=== PATIENT | female | born 1960 | race Hispanic/Latino ===

== ENCOUNTER 2017-08-24 01:59 | Emergency (ER) | payer MEDICAID, OTHER ==
[2017-08-24 06:04] LABS: BUN/Creatinine Ratio 22; Blood Urea Nitrogen 11 mg/dL (7-17); Calcium 10.1 mg/dL (8.4-10.2); Hemolysis Index 3
[2017-08-24 06:19] VITALS: BP 130/66
--- NOTE | 2017-08-24 06:55 | Emergency Department Report ---
ED General Adult HPI - General Chief complaint: Hypoglycemia Stated complaint: SUGAR LOW Time Seen by Provider: 08/24/17 06:19 Source: patient Mode of arrival: Ambulatory Limitations: No Limitations - History of Present Illness Initial comments: 57 year old female history of [id number] diabetes, asthma, COPD, hypertension, peripheral neuropathy, CAD with stent placement and cardiac bypass presents to the hospital complains of tremulous feeling and lightheadedness. Symptoms occurred acutely at 1:30 AM. Patient was then brought to the ER by her son. Upon arrival patient was tremulous with a Accu- Chek of 78. After getting a snack lunch in juice she felt "a whole lot better. " Despite being a diabetic for many years patient has never had an episode of hypoglycemia. In the past she has been on metformin, glipizide, and insulin. She is not currently on insulin. Patient has only been on metformin (unknown dose) twice a day for the past one week because she ran out of her glipizide. She restarted her glipizide 5 mg last night (scheduled for bid). She also thinks she did not have enough to eat during the day. While only on her metformin her sugars have been running 160-250. She denies fever, cough or infectious symptoms, dysuria, nausea, vomiting, or pain. Patient does have a new PMD but she cannot recall the name Severity scale (0 -10): 0 - Related Data Home Medications Medication Instructions Recorded Confirmed Last Taken Levalbuterol Hfa 45 Mcg/Puff 2 mcg INHALATION Q6H PRN 05/11/15 08/22/16 05/10/15 [Xopenex Hfa (Nf)] Pantoprazole [Protonix TAB] 40 mg PO QDAY 05/11/15 08/22/16 05/10/15 Tiotropium [place] [Spiriva 2 gm IH QAM 05/11/15 08/22/16 05/09/15 Respimat] Vit D3/Folic Acid/B2/B6/B12 1 tab PO QWEEK 05/11/15 08/22/16 05/06/15 [Folgard Tablet] Albuterol Sulfate [Ventolin HFA] 2 puff IH Q4H PRN 08/22/16 08/22/16 Unknown Desvenlafaxine Succinate [Pristiq] 50 mg PO DAILY 08/22/16 08/22/16 Unknown Diazepam 10 mg PO BID 08/22/16 08/22/16 Unknown busPIRone [Buspar] 10 mg PO BID 08/22/16 08/22/16 Unknown glipiZIDE [Glucotrol] 5 mg PO BID 08/22/16 08/22/16 Unknown traZODone [Desyrel] 50 mg PO QHS 08/22/16 08/22/16 Unknown Previous Rx's Medication Instructions Recorded Last Taken Type Simvastatin [Zocor TAB] 10 mg PO QHS #30 tablet 11/05/14 05/09/15 Rx Famotidine [Pepcid] 20 mg PO BID #60 tablet 08/23/16 Unknown Rx Gabapentin [Neurontin] 300 mg PO QHS #30 capsule 08/23/16 Unknown Rx diphenhydrAMINE [Benadryl CAP] 25 mg PO Q6HR PRN #20 capsule 08/23/16 Unknown Rx Aspirin EC [Aspirin Enteric Coated 325 mg PO QDAY #30 tablet. 08/28/16 Unknown Rx TAB] Allergies Allergy/AdvReac Type Severity Reaction Status Date / Time No Known Allergies Allergy Unverified 11/02/14 18:01 ED Review of Systems ROS: Stated complaint: SUGAR LOW Other details as noted in HPI Comment: All other systems reviewed and negative ED Past Medical Hx - Past Medical History Previous Medical History?: Yes Hx Hypertension: Yes Hx Congestive Heart Failure: No Hx Diabetes: Yes Hx Asthma: Yes Hx COPD: Yes Hx HIV: No Additional medical history: peripheral neuropathy - Surgical History Past Surgical History?: Yes Hx Coronary Stent: Yes (x1, 2009) Hx Open Heart Surgery: Yes Hx Cholecystectomy: Yes Additional Surgical History: hysterectomy, 2010. 2 vessel bypass, 2009 - Social History Smoking Status: Former Smoker - Medications Home Medications: Home Medications Medication Instructions Recorded Confirmed Last Taken Type Simvastatin [Zocor TAB] 10 mg PO QHS #30 tablet 11/05/14 08/22/16 05/09/15 Rx Levalbuterol Hfa 45 Mcg/Puff 2 mcg INHALATION Q6H PRN 05/11/15 08/22/16 History [Xopenex Hfa (Nf)] Pantoprazole [Protonix TAB] 40 mg PO QDAY 05/11/15 08/22/16 05/10/15 History Tiotropium [place] [Spiriva 2 gm IH QAM 05/11/15 08/22/16 05/09/15 History Respimat] Vit D3/Folic Acid/B2/B6/B12 1 tab PO QWEEK 05/11/15 08/22/16 05/06/15 History [Folgard Tablet] Albuterol Sulfate [Ventolin HFA] 2 puff IH Q4H PRN 08/22/16 08/22/16 Unknown History Desvenlafaxine Succinate [Pristiq] 50 mg PO DAILY 08/22/16 08/22/16 Unknown History Diazepam 10 mg PO BID 08/22/16 08/22/16 Unknown History busPIRone [Buspar] 10 mg PO BID 08/22/16 08/22/16 Unknown History glipiZIDE [Glucotrol] 5 mg PO BID 08/22/16 08/22/16 Unknown History traZODone [Desyrel] 50 mg PO QHS 08/22/16 08/22/16 Unknown History Famotidine [Pepcid] 20 mg PO BID #60 tablet 08/23/16 Unknown Rx Gabapentin [Neurontin] 300 mg PO QHS #30 capsule 08/23/16 Unknown Rx diphenhydrAMINE [Benadryl CAP] 25 mg PO Q6HR PRN #20 capsule 08/23/16 Unknown Rx Aspirin EC [Aspirin Enteric Coated 325 mg PO QDAY #30 tablet. 08/28/16 Unknown Rx TAB] ED Physical Exam - General Limitations: No Limitations - Other Other exam information: General: No limitations, patient is alert in no acute distress Head exam: Atraumatic, normocephalic Eyes exam: Normal appearance ENT: Moist mucous membrane, normal oropharynx Neck exam: Normal inspection, full range of motion, no meningismus nontender Respiratory exam: Clear to auscultation bilateral, no wheezes, rales, crackles Cardiovascular: Normal rate and rhythm, sternotomy scar Abdomen: Soft, nondistended, and nontender, with normal bowel sounds, no rebound, or guarding Extremity: Full range of motion normal inspection no deformity Back: Normal Inspection, full range of motion, no tenderness Neurologic: Alert, oriented x3, cranial nerves intact, no motor or sensory deficit Psychiatric: normal affect, normal mood Skin: Warm, dry, intact ED Course Vital Signs 08/24/17 08/24/17 02:41 06:17 Temperature 97.3 F L 98 F Pulse Rate 90 86 Respiratory 18 16 Rate Blood Pressure 108/60 Blood Pressure 130/66 [Left] O2 Sat by Pulse 95 100 Oximetry ED Medical Decision Making - Lab Data Result diagrams: 08/24/17 05:35 Lab Results 08/24/17 Range/Units 05:35 Sodium 143 (137-145) mmol/L Potassium 4.5 (3.6-5.0) mmol/L Chloride 101.2 (98-107) mmol/L Carbon Dioxide 31 H (22-30) mmol/L Anion Gap 15 mmol/L BUN 11 (7-17) mg/dL Creatinine 0.5 L (0.7-1.2) mg/dL Estimated GFR > 60 ml/min BUN/Creatinine Ratio 22 % Glucose 150 H (65-100) mg/dL Calcium 10.1 (8.4-10.2) mg/dL - Medical Decision Making Patient had hypoglycemia likely secondary to decreased fluid intake. Patient states she has been trying to drink more water and eat appropriately. Her sugar was in the 160-250 range just on her metformin twice a day and she had a hypoglycemic episode after reinitiating glipizide. Patient's glucose remained stable in the ED. She was advised to take the glipizide 5 mg once a day in the morning only in addition to her metformin. She was monitored her glucose and follow-up with PMD for further diabetes management. Glucose is only 134, so pt will be advised to restart glipizide tomorrow. - Differential Diagnosis diabetic medication reaction, infection, poor by mouth intake Critical Care Time: No Critical care attestation.: If time is entered above; I have spent that time in minutes in the direct care of this critically ill patient, excluding procedure time. ED Disposition Clinical Impression: Hypoglycemia associated with diabetes Disposition: DC-01 TO HOME OR SELFCARE Is pt being admited?: No Condition: Stable Instructions: Diabetic Hypoglycemia (ED) Additional Instructions: Continue your metformin as prescribed. Take glipizide 5 mg only once a day in the morning and continue to monitor glucose and eat appropriately throughout the day. Restart the glipizide tomorrow morning. If your sugars are running low then stop the glipizide altogether. Follow-up with your doctor for further diabetes management and return if symptoms worsen as indicated by your discharge instructions. Referrals: PRIMARY CARE, [Primary Care Provider] - 3-5 Days Time of Disposition: 07:04
== END 2017-08-24 06:45 | disposition home or self-care (01) ==
LOC: ED 01:59
DX: E11.649 Type 2 diabetes mellitus with hypoglycemia without coma (principal); I10 Essential (primary) hypertension; E11.42 Type 2 diabetes mellitus with diabetic polyneuropathy; J44.9 Chronic obstructive pulmonary disease, unspecified; Z95.1 Presence of aortocoronary bypass graft; Z87.891 Personal history of nicotine dependence; Z90.710 Acquired absence of both cervix and uterus
CPT/HCPCS: 36415; 80048; 82962; 99283

== ENCOUNTER 2017-10-14 10:56 | Emergency (ER) | payer MEDICAID ==
--- NOTE | 2017-10-14 11:49 | Emergency Department Report ---
ED General Adult HPI - General Chief complaint: Hyperglycemia Stated complaint: HIGH SUGAR/SHAKY Time Seen by Provider: 10/14/17 11:49 Source: patient Mode of arrival: Ambulatory Limitations: No Limitations - History of Present Illness Initial comments: Patient is a 57-year-old female past medical history of type 2 diabetes who presents with elevated blood sugar. Patient states that she was previously on glipizide however her doctor took her off of it because her blood sugars was in the 100s. Patient states that she took her blood sugar today and it was in the 500s. She denies any nausea or vomiting. She denies having any abdominal pain. Any coughing or any febrile symptoms. Patient states that she does not take any insulin and that she has been working out to lose weight. Patient does not smoke and only drinks socially. Patient currently is not employed. - Related Data Home Medications Medication Instructions Recorded Confirmed Last Taken Levalbuterol Hfa 45 Mcg/Puff 2 mcg INHALATION Q6H PRN 05/11/15 08/22/16 05/10/15 [Xopenex Hfa (Nf)] Pantoprazole [Protonix TAB] 40 mg PO QDAY 05/11/15 08/22/16 05/10/15 Tiotropium [place] [Spiriva 2 gm IH QAM 05/11/15 08/22/16 05/09/15 Respimat] Vit D3/Folic Acid/B2/B6/B12 1 tab PO QWEEK 05/11/15 08/22/16 05/06/15 [Folgard Tablet] Albuterol Sulfate [Ventolin HFA] 2 puff IH Q4H PRN 08/22/16 08/22/16 Unknown Desvenlafaxine Succinate [Pristiq] 50 mg PO DAILY 08/22/16 08/22/16 Unknown busPIRone [Buspar] 10 mg PO BID 08/22/16 08/22/16 Unknown diazePAM [Diazepam] 10 mg PO BID 08/22/16 08/22/16 Unknown glipiZIDE [Glucotrol] 5 mg PO BID 08/22/16 08/22/16 Unknown traZODone [Desyrel] 50 mg PO QHS 08/22/16 08/22/16 Unknown Previous Rx's Medication Instructions Recorded Last Taken Type Simvastatin [Zocor TAB] 10 mg PO QHS #30 tablet 11/05/14 05/09/15 Rx Famotidine [Pepcid] 20 mg PO BID #60 tablet 08/23/16 Unknown Rx Gabapentin [Neurontin] 300 mg PO QHS #30 capsule 08/23/16 Unknown Rx diphenhydrAMINE [Benadryl CAP] 25 mg PO Q6HR PRN #20 capsule 08/23/16 Unknown Rx Aspirin EC [Aspirin Enteric Coated 325 mg PO QDAY #30 tablet. 08/28/16 Unknown Rx TAB] Sulfamethoxazole/Trimethoprim 1 each PO BID #14 tablet 10/14/17 Unknown Rx [Bactrim DS TAB] Allergies Allergy/AdvReac Type Severity Reaction Status Date / Time No Known Allergies Allergy Unverified 11/02/14 18:01 ED Review of Systems ROS: Stated complaint: HIGH SUGAR/SHAKY Other details as noted in HPI Constitutional: denies: chills, fever Eyes: denies: eye pain, eye discharge, vision change ENT: denies: ear pain, throat pain Respiratory: denies: cough, shortness of breath, wheezing Cardiovascular: denies: chest pain, palpitations Endocrine: no symptoms reported Gastrointestinal: denies: abdominal pain, nausea, diarrhea Genitourinary: denies: urgency, dysuria, discharge Musculoskeletal: denies: back pain, joint swelling, arthralgia Skin: denies: rash, lesions Neurological: denies: headache, weakness, paresthesias Psychiatric: denies: anxiety, depression Hematological/Lymphatic: denies: easy bleeding, easy bruising ED Past Medical Hx - Past Medical History Hx Hypertension: Yes Hx Congestive Heart Failure: No Hx Diabetes: Yes Hx Asthma: Yes Hx COPD: Yes Hx HIV: No Additional medical history: peripheral neuropathy - Surgical History Hx Coronary Stent: Yes (x1, 2010) Hx Open Heart Surgery: Yes Hx Cholecystectomy: Yes Additional Surgical History: hysterectomy, 2011. 2 vessel bypass, 2009 - Social History Smoking Status: Never Smoker Substance Use Type: None - Medications Home Medications: Home Medications Medication Instructions Recorded Confirmed Last Taken Type Simvastatin [Zocor TAB] 10 mg PO QHS #30 tablet 11/05/14 08/22/16 05/09/15 Rx Levalbuterol Hfa 45 Mcg/Puff 2 mcg INHALATION Q6H PRN 05/11/15 08/22/16 History [Xopenex Hfa (Nf)] Pantoprazole [Protonix TAB] 40 mg PO QDAY 05/11/15 08/22/16 05/10/15 History Tiotropium [place] [Spiriva 2 gm IH QAM 05/11/15 08/22/16 05/09/15 History Respimat] Vit D3/Folic Acid/B2/B6/B12 1 tab PO QWEEK 05/11/15 08/22/16 05/06/15 History [Folgard Tablet] Albuterol Sulfate [Ventolin HFA] 2 puff IH Q4H PRN 08/22/16 08/22/16 Unknown History Desvenlafaxine Succinate [Pristiq] 50 mg PO DAILY 08/22/16 08/22/16 Unknown History busPIRone [Buspar] 10 mg PO BID 08/22/16 08/22/16 Unknown History diazePAM [Diazepam] 10 mg PO BID 08/22/16 08/22/16 Unknown History glipiZIDE [Glucotrol] 5 mg PO BID 08/22/16 08/22/16 Unknown History traZODone [Desyrel] 50 mg PO QHS 08/22/16 08/22/16 Unknown History Famotidine [Pepcid] 20 mg PO BID #60 tablet 08/23/16 Unknown Rx Gabapentin [Neurontin] 300 mg PO QHS #30 capsule 08/23/16 Unknown Rx diphenhydrAMINE [Benadryl CAP] 25 mg PO Q6HR PRN #20 capsule 08/23/16 Unknown Rx Aspirin EC [Aspirin Enteric Coated 325 mg PO QDAY #30 tablet. 08/28/16 Unknown Rx TAB] Sulfamethoxazole/Trimethoprim 1 each PO BID #14 tablet 10/14/17 Unknown Rx [Bactrim DS TAB] ED Physical Exam - General Limitations: No Limitations General appearance: alert, in no apparent distress - Head Head exam: Present: atraumatic, normocephalic - Eye Eye exam: Present: normal appearance - ENT ENT exam: Present: mucous membranes moist - Neck Neck exam: Present: normal inspection - Respiratory Respiratory exam: Present: normal lung sounds bilaterally. Absent: respiratory distress - Cardiovascular Cardiovascular Exam: Present: regular rate, normal rhythm. Absent: systolic murmur, diastolic murmur, rubs, gallop - GI/Abdominal GI/Abdominal exam: Present: soft, normal bowel sounds - Extremities Exam Extremities exam: Present: normal inspection - Back Exam Back exam: Present: normal inspection - Neurological Exam Neurological exam: Present: alert, oriented X3 - Psychiatric Psychiatric exam: Present: normal affect, normal mood - Skin Skin exam: Present: warm, dry, intact, normal color. Absent: rash ED Course Vital Signs 10/14/17 10/14/17 10/14/17 11:20 11:44 12:22 Temperature 98.7 F Pulse Rate 100 H 108 H 97 H Respiratory 16 16 18 Rate Blood Pressure 130/60 134/45 O2 Sat by Pulse 95 Oximetry 10/14/17 12:30 Temperature Pulse Rate 89 Respiratory 18 Rate Blood Pressure 134/45 O2 Sat by Pulse 97 Oximetry - Reevaluation(s) Reevaluation #1: 10/14/17 14:48 Agents blood glucoses in the 100s I will send patient home with oral antibiotics for her urinary tract infection. Reevaluation #2: 10/14/17 14:55 Patient's repeat blood sugar is 142. ED Medical Decision Making - Lab Data Result diagrams: 10/14/17 11:26 10/14/17 11:26 Lab Results 10/14/17 10/14/17 10/14/17 Range/Units 11:12 11:26 11:26 WBC 10.2 (4.5-11.0) K/mm3 RBC 5.90 H (3.65-5.03) M/mm3 Hgb 17.2 H (10.1-14.3) gm/dl Hct 51.2 H (30.3-42.9) % MCV 87 (79-97) fl MCH 29 (28-32) pg MCHC 34 (30-34) % RDW 13.1 L (13.2-15.2) % Plt Count 283 (140-440) K/mm3 Lymph % (Auto) 18.5 (13.4-35.0) % [place] % (Auto) 4.9 (0.0-7.3) % Eos % (Auto) 0.9 (0.0-4.3) % Baso % (Auto) 0.7 (0.0-1.8) % Lymph # 1.9 (1.2-5.4) K/mm3 [place] # 0.5 (0.0-0.8) K/mm3 Eos # 0.1 (0.0-0.4) K/mm3 Baso # 0.1 (0.0-0.1) K/mm3 Seg Neutrophils % 75.0 H (40.0-70.0) % Seg Neutrophils # 7.7 (1.8-7.7) K/mm3 VBG pH (7.320-7.420) Sodium 134 L (137-145) mmol/L Potassium 4.3 (3.6-5.0) mmol/L Chloride 94.0 L (98-107) mmol/L Carbon Dioxide 21 L (22-30) mmol/L Anion Gap 23 mmol/L BUN 14 (7-17) mg/dL Creatinine 0.7 (0.7-1.2) mg/dL Estimated GFR > 60 ml/min BUN/Creatinine Ratio 20 % Glucose 589 H* (65-100) mg/dL POC Glucose > 500 H (70-105) Calcium 9.1 (8.4-10.2) mg/dL 10/14/17 Range/Units 11:26 WBC (4.5-11.0) K/mm3 RBC (3.65-5.03) M/mm3 Hgb (10.1-14.3) gm/dl Hct (30.3-42.9) % MCV (79-97) fl MCH (28-32) pg MCHC (30-34) % RDW (13.2-15.2) % Plt Count (140-440) K/mm3 Lymph % (Auto) (13.4-35.0) % [place] % (Auto) (0.0-7.3) % Eos % (Auto) (0.0-4.3) % Baso % (Auto) (0.0-1.8) % Lymph # (1.2-5.4) K/mm3 [place] # (0.0-0.8) K/mm3 Eos # (0.0-0.4) K/mm3 Baso # (0.0-0.1) K/mm3 Seg Neutrophils % (40.0-70.0) % Seg Neutrophils # (1.8-7.7) K/mm3 VBG pH 7.383 (7.320-7.420) Sodium (137-145) mmol/L Potassium (3.6-5.0) mmol/L Chloride (98-107) mmol/L Carbon Dioxide (22-30) mmol/L Anion Gap mmol/L BUN (7-17) mg/dL Creatinine (0.7-1.2) mg/dL Estimated GFR ml/min BUN/Creatinine Ratio % Glucose (65-100) mg/dL POC Glucose (70-105) Calcium (8.4-10.2) mg/dL - Medical Decision Making Cdx: Hyperglycemia 2/2 Type 2 Diabetes Ddx: Diabetes ketoacidosis, Hyper osmolic nonketotic state We'll give IV fluids, IV insulin, CBC, CMP, VBG Patient has a potentially life-threatening condition I will reevaluate patient after IV insulin and multiple fluid boluses to determine if patient needs to be admitted to the hospital. I will discharge patient with oral antibiotics for her UTI. Discussed plan with patient and patient agrees with plan additional verbal discharge instructions were given. Critical care attestation.: If time is entered above; I have spent that time in minutes in the direct care of this critically ill patient, excluding procedure time. ED Disposition Clinical Impression: UTI (urinary tract infection) Qualifiers: Urinary tract infection type: acute cystitis Hematuria presence: without hematuria Qualified Code(s): N30.00 - Acute cystitis without hematuria Hyperglycemia due to type 2 diabetes mellitus Qualifiers: Diabetes mellitus [place] [employer] member insulin use: without [place] tribunal member use Qualified Code(s ): E11.65 - Type 2 diabetes mellitus with hyperglycemia Disposition: DC-01 TO HOME OR SELFCARE Is pt being admited?: No Does the pt Need Aspirin: No Condition: Stable Instructions: Diabetes Mellitus Type 2 in Adults (ED) Prescriptions: Sulfamethoxazole/Trimethoprim [Bactrim DS TAB] 1 each PO BID #14 tablet Referrals: PRIMARY CARE, [Primary Care Provider] - 3-5 Days
[2017-10-14 11:59] LABS: Basophils # (Auto) 0.1 K/mm3 (0.0-0.1); Basophils % (Auto) 0.7 % (0.0-1.8); Eosinophils # (Auto) 0.1 K/mm3 (0.0-0.4); Eosinophils % (Auto) 0.9 % (0.0-4.3); Hematocrit 51.2 % (30.3-42.9); Hemoglobin 17.2 gm/dl (10.1-14.3); Lymphocytes # (Auto) 1.9 K/mm3 (1.2-5.4); Lymphocytes % (Auto) 18.5 % (13.4-35.0); Mean Corpuscular HGB Conc 34 % (30-34); Mean Corpuscular Hemoglobin 29 pg (28-32); Mean Corpuscular Volume 87 fl (79-97); Monocytes # (Auto) 0.5 K/mm3 (0.0-0.8); Monocytes % (Auto) 4.9 % (0.0-7.3); Platelet Count 283 K/mm3 (140-440); Red Cell Distribution Width 13.1 % (13.2-15.2)
[2017-10-14 12:17] LABS: BUN/Creatinine Ratio 20; Blood Urea Nitrogen 14 mg/dL (7-17); Calcium 9.1 mg/dL (8.4-10.2); Hemolysis Index 95
[2017-10-14] MEDS ORDERED: NACL 0.9% 1000 ML 1,000 ML IV ONE ×2 (12:21)
[2017-10-14] MEDS ORDERED: HumuLIN R IV ONE (12:22)
[2017-10-14 13:48] LABS: Bacteria,Urine 4+ /HPF (Negative); Bilirubin,Urine NEG (Negative); Blood,Urine MOD (Negative); Color,Urine Yellow (Yellow); Hyaline Casts,Urine 1 /LPF; Mucus,Urine FEW /HPF; Protein,Urine <15 mg/dL mg/dL (Negative); Urobilinogen,Urine < 2.0 mg/dL (<2.0)
[2017-10-14] MEDS ORDERED: ROCEPHIN/NS 1 GM/50 ML 1 GM/50 ML BAG IV ONE (14:10)
[2017-10-14 16:21] VITALS: BP 118/51
== END 2017-10-14 16:30 | disposition home or self-care (01) ==
LOC: ED 10:56
DX: E11.65 Type 2 diabetes mellitus with hyperglycemia (principal); N30.00 Acute cystitis without hematuria; I10 Essential (primary) hypertension; E11.9 Type 2 diabetes mellitus without complications; J44.9 Chronic obstructive pulmonary disease, unspecified; Z90.89 Acquired absence of other organs
CPT/HCPCS: 36415; 80048; 81001; 82805; 82962; 85025; 96361; 96365; 96375; 99284; J0696; J7030; 96374; J1815

== ENCOUNTER 2017-11-04 05:53 | Emergency (ER) | payer MEDICAID ==
[2017-11-04 07:45] VITALS: BP 148/74
== END 2017-11-04 07:45 | disposition left against medical advice (07) ==
LOC: ED 05:53
DX: R21 Rash and other nonspecific skin eruption (principal); Z53.21 Procedure and treatment not carried out due to patient leaving prior to being seen by health care provider

== ENCOUNTER 2020-04-21 06:22 | Day surgery (SDC) | payer MEDICARE ==
[2020-04-21] MEDS ORDERED: ASPIRIN EC 325 MG TAB PO ONE (07:11)
[2020-04-21 07:24] LABS: Basophils # (Auto) 0.1 K/mm3 (0.0-0.1); Basophils % (Auto) 1.1 % (0.0-1.8); Eosinophils # (Auto) 0.3 K/mm3 (0.0-0.4); Eosinophils % (Auto) 4.1 % (0.0-4.3); Lymphocytes # (Auto) 1.6 K/mm3 (1.2-5.4); Lymphocytes % (Auto) 25.4 % (13.4-35.0); Mean Corpuscular HGB Conc 36 % (30-34); Mean Corpuscular Volume 88 fl (79-97); Monocytes # (Auto) 0.5 K/mm3 (0.0-0.8); Monocytes % (Auto) 7.5 % (0.0-7.3); Platelet Count 257 K/mm3 (140-440); Red Blood Count 5.29 M/mm3 (3.65-5.03); Red Cell Distribution Width 12.6 % (13.2-15.2)
[2020-04-21 07:28] LABS: Hematocrit 46.8 % (30.3-42.9); Hemoglobin 16.6 gm/dl (10.1-14.3)
[2020-04-21 07:34] LABS: INR 0.93 (0.87-1.13)
[2020-04-21 07:35] LABS: Blood Urea Nitrogen 11 mg/dL (7-17); Calcium 9.5 mg/dL (8.4-10.2); Hemolysis Index 1; Partial Thromboplastin Time 25.2 Sec. (24.2-36.6)
[2020-04-21 07:47] LABS: BUN/Creatinine Ratio 18
[2020-04-21] MEDS ORDERED: SODIUM CHLORIDE 0.9% 500 ML 500 ML IV SCH (08:00)
[2020-04-21] MEDS ORDERED: HEPARIN/NS 5000 UNIT/500ML 1,000 ML IR ONE (08:13)
[2020-04-21] MEDS ORDERED: MIDAZOLAM 2 MG/2 ML INJ ONE (08:20)
[2020-04-21] MEDS ORDERED: fentaNYL 100 MCG/2 ML INJ ONE (08:20)
[2020-04-21] MEDS ORDERED: NITROGLYCERIN SYRINGE 0 ML ONE (08:21)
[2020-04-21] MEDS ORDERED: LIDOCAINE (2%) 20 MG/1 ML VIAL 20 ML MDV INFILTRATI ONE ×3 (08:21→09:06)
[2020-04-21] MEDS ORDERED: HEPARIN 10,000 UNITS/10 ML VIAL ONE (08:21)
[2020-04-21] MEDS ORDERED: MIDAZOLAM 2 MG/2 ML INJ IV ONE ×2 (08:40→09:00)
[2020-04-21] MEDS ORDERED: fentaNYL 100 MCG/2 ML INJ IV ONE ×2 (08:41→09:00)
--- NOTE | 2020-04-21 10:03 | Cardiac Catherization Report ---
CARDIAC CATHETERIZATION AND CORONARY ANGIOGRAPHY INDICATION FOR PROCEDURE: The patient is a 60-year-old white female with history of coronary stenting and bypass surgery done in 2009 with left internal mammary to the LAD and saphenous vein graft to the obtuse marginal branch, presently was noted to have mild apical ischemia of unknown significance. Hence, scheduled for cardiac catheterization for definitive diagnosis and treatment. The patient is a diabetic, hypertensive. The patient is aware of the procedure, potential complications and alternatives of therapy available. DESCRIPTION OF PROCEDURE: The patient was brought to the catheterization laboratory in a fasting condition. The patient was prepared in a standard fashion. Sterile drapes were applied. The patient was evaluated for moderate sedation and was felt to be appropriate candidate for moderate sedation and received IV Versed and fentanyl. Subsequently, right groin was prepared with chlorhexidine solution and sterile drapes were applied. Under fluoroscopy, right femoral artery puncture was made using 5-Monegasque micropuncture needle. Subsequently, 6-Monegasque sheath was introduced. A 6-Monegasque multipurpose catheter was used to obtain the angiograms of the right coronary artery, left coronary artery, angiograms of the saphenous vein graft to the marginal branch in addition to left ventriculogram done in STODDARD projection. Mammary catheter was used to obtain the angiograms of the left internal mammary graft. At the end of the procedure, angiograms of the right femoral artery were obtained and 6-Monegasque Angio-Seal was inserted in a standard fashion and good hemostasis was achieved. No hematoma noted. The patient tolerated the procedure well. The patient was monitored throughout the procedure with a pulse oximetry, EKG monitoring and hemodynamic monitoring. At the end of the procedure, the patient is communicating normally, able to move all the extremities and breathing normally. No focal deficits were noted. The patient's moderate sedation started at 9:00 a.m. and ended at 9:23 a.m. Following findings were noted. HEMODYNAMICS: 1. Opening aortic pressure 146/76. Left ventricular pressure 142/13. No gradient across the aortic valve. Estimated ejection fraction probably around 50-55%. However, anterior wall is not adequately visualized. Mitral regurgitation could not be evaluated. Right coronary artery dominant vessel arises normally from right coronary cusp. Angiographically smooth and normal. 2. Left coronary artery arises normally from left coronary cusp. Left main without significant disease and there is a stent noted starting in the distal part of the left main to the proximal LAD which was widely patent. LAD itself curving around the apex without significant disease. Diagonal branch vessels are relatively small caliber vessels. Circumflex artery is showing competitive flow in the proximal part on LCA injection. 3. Saphenous vein graft to the distal obtuse marginal branch is patent and this graft is angiographically smooth and normal, filling retrogradely medium sized mid obtuse marginal branch. However, this was attached to a small distal obtuse marginal branch, which has severe stenosis distal to the anastomosis; however, this is very, very small caliber vessel. 4. Left internal mammary to the LAD is patent, but is very thread-like considering this is nonfunctioning with widely patent LAD. FINAL IMPRESSION: 1. Probably normal sized left ventricle with normal contractility. However, anterior wall is not well visualized. End-diastolic pressure is normal at 13 mmHg. 2. Coronary angiography showed normal right coronary artery, also widely patent stent in the distal left main/proximal left anterior descending with rest of the left anterior descending without significant disease and patent left internal mammary graft but nonfunctional secondary to the widely patent left anterior descending. Circumflex artery is protected by a large saphenous vein graft to the distal circumflex, distal obtuse marginal branch. As mentioned above, it is perfusing the mid obtuse marginal branch well. Distal marginal branch is very small caliber vessel with stenosis. At this time, considering the above angiographic pictures, the patient will be continued on medical therapy. We will continue risk factor modification. Findings were explained to the patient in detail and she understands. [facility]# [id number] FARZAD/CAMILLE PEREA
--- NOTE | 2020-04-21 11:58 | Short Stay Summary ---
Short Stay Documentation Date of service: 04/21/20 - History H&P: obtained from office - Allergies and Medications Current Medications: Allergies No Known Allergies Allergy (Unverified 11/02/14 18:01) Home Medications Medication Instructions Recorded Confirmed Last Taken Type Pantoprazole [Protonix TAB] 40 mg PO QDAY 05/11/15 04/21/20 03/22/20 History 40 mg Tiotropium [place] [Spiriva 2 gm IH QAM 05/11/15 04/21/20 04/15/20 History Respimat] 1 puff Albuterol Sulfate [Ventolin HFA] 2 puff IH Q4H PRN 08/22/16 04/21/20 03/22/20 History busPIRone [Buspar] 10 mg PO HS 08/22/16 04/21/20 04/20/20 History 10 mg ALPRAZolam [Xanax TAB] 1 mg PO BID 04/21/20 04/21/20 04/20/20 History 1 mg AtorvaSTATin [Lipitor] 40 mg PO HS 04/21/20 04/21/20 04/20/20 History 40 mg DULoxetine [Cymbalta] 60 mg PO DAILY 04/21/20 04/21/20 04/18/20 History 60 mg Insulin Aspart (Nf) [NovoLOG 100 5 unit SQ TID 04/21/20 04/21/20 04/18/20 History UNITS/ML VIAL] 12 units Insulin Detemir (Nf) [Levemir 22 unit SQ QHS 04/21/20 04/21/20 04/20/20 History Flextouch (Nf)] 22 units Metoprolol [Lopressor TAB] 25 mg PO DAILY 04/21/20 04/21/20 04/20/20 History 25 mg Mirtazapine [Remeron] 30 mg PO HS 04/21/20 04/21/20 04/20/20 History 30 mg lisinopriL [Lisinopril] 10 mg PO DAILY 04/21/20 04/21/20 04/20/20 History 10 mg Active Medications Sodium Chloride (Nacl 0.9% 500 Ml) 500 mls @ 50 mls/hr IV DIRECT DAY Stop: 04/21/20 17:59 Last Admin: 04/21/20 07:39 Dose: 50 mls/hr Documented by: - Brief post op/procedure progress note Date of procedure: 04/21/20 Pre-op diagnosis: CAD Post-op diagnosis: same Procedure: [facility] - see dictated cath report Anesthesia: local Estimated blood loss: none Condition: stable - Disposition Condition at discharge: Good Disposition: [id number] TO HOME OR SELFCARE - Discharge Diagnoses (1) CAD (coronary artery disease) Status: Chronic (2) History of coronary artery bypass graft Status: Chronic (3) HTN (hypertension) Status: Chronic (4) Diabetes Status: Chronic Short Stay Discharge Plan Activity: advance as tolerated Diet: low fat, low cholesterol, low salt, diabetic Wound: open to air, keep clean and dry, per your surgeon's advice Follow up with: ROB MOSS MD [Primary Care Provider] - 7 Days LONDON NAPOLES MD [Staff Physician] - 7 Days Forms: CardCath PCI D/C Instructions
[2020-04-21 12:53] VITALS: BP 123/51
== END 2020-04-21 13:45 | disposition home or self-care (01) ==
LOC: CATHLABREC 06:22
PROVIDERS: ATTEND Internal Medicine
DX: I25.10 Atherosclerotic heart disease of native coronary artery without angina pectoris (principal); I10 Essential (primary) hypertension; E11.9 Type 2 diabetes mellitus without complications; E78.00 Pure hypercholesterolemia, unspecified; J44.9 Chronic obstructive pulmonary disease, unspecified; M19.90 Unspecified osteoarthritis, unspecified site; F32.9 Major depressive disorder, single episode, unspecified; F41.9 Anxiety disorder, unspecified; Z95.1 Presence of aortocoronary bypass graft; Z83.3 Family history of diabetes mellitus; Z90.49 Acquired absence of other specified parts of digestive tract; Z90.710 Acquired absence of both cervix and uterus; Z98.890 Other specified postprocedural states; Z80.8 Family history of malignant neoplasm of other organs or systems; Z82.5 Family history of asthma and other chronic lower respiratory diseases; Z80.0 Family history of malignant neoplasm of digestive organs; Z72.89 Other problems related to lifestyle; Z82.49 Family history of ischemic heart disease and other diseases of the circulatory system
CPT/HCPCS: 36415; 80048; 85025; 85610; 85730; 93005; 93459; 99156; 99157; C1760; C1894; J1644; J2250; J3010; J7040; Q9967